=== PATIENT | male | born 1960 | race Caucasian/White ===

== ENCOUNTER 2022-04-07 19:43 | Emergency (ER) | payer BC, SELFPAY ==
[2022-04-07 19:49] VITALS: BP 153/79; PULSE 81; RESP 18; TEMP 36.9; O2SAT 97
--- NOTE | 2022-04-07 20:24 | ED.LOWEXIN ---
HPI - Extremity Injury (Lower) General Chief Complaint: Urogenital-Male Stated Complaint: Urinary Problem Time Seen by Provider: 04/07/22 19:55 Source: patient, family, RN notes reviewed and old records reviewed Mode of arrival: ambulatory Limitations: no limitations History of Present Illness HPI Narrative: 62 year old male accompanied by with episodes X2 of bright red blood noted today in urine. Patient states that in betwen the 2 episodes of bloody urine he has voided clear yellow looking urine. Patient denies any burning with urination, no pain with urination, no frequency, urgency, foul odor of urine, no abdominal or perineal pain and no new back pain. Patient has history of chronic back pain with past lumbar fusion. Patient denies any history of kidney stones or any previous UTI or prostate problems. Patient denies any fever, chills or sweats, denies any concern for STD exposure. MD complaint: other (hematuria) Onset (ago): day(s) (1) Treatments prior to arrival: other (none) Related Data Home Medications Medication Instructions Recorded Confirmed pravastatin 40 mg tablet 40 mg PO DAILY 02/09/22 04/07/22 Allergies Allergy/AdvReac Type Severity Reaction Status Date / Time Sulfa (Sulfonamide Allergy Intermediate Unknown Verified 04/07/22 20:00 Antibiotics) Review of Systems Review of Systems: CONSTITUTIONAL: Denies fever, chills, or sweats. EYES: Denies visual changes, redness, or discharge. ENT: Denies rhinorrhea, congestion, sore throat, or otalgia. CARDIOVASCULAR: Denies chest pain, palpitations, or edema. RESPIRATORY: Denies cough or dyspnea. GASTROINTESTINAL: Denies abdominal pain, nausea, vomiting, or diarrhea. GENITOURINARY: Denies dysuria positive for hematuria. SKIN: Denies rash or itching. MUSCULOSKELETAL: Chronic back pain, joint pain, or myalgia. NEUROLOGIC: Denies headache, numbness, or weakness. PSYCHIATRIC: Denies anxiety or depression. All systems reviewed & are unremarkable except as noted in HPI and below PMFSH Past Medical History Medical History (Updated 04/12/22 @ 12:29 by Connie Garcia NP) Arthritis Chronic back pain Elevated cholesterol Surgical History Surgical History (Updated 04/12/22 @ 12:32 by Connie Garcia NP) H/O lumbosacral spine surgery spinal fusion Family History Family History Father Cancer Hypertension Heart disease Mother Hypertension Social History Social History (Updated 04/12/22 @ 12:32 by Connie Garcia NP) Smoking packs per day: 1 Smoking cigarettes per day: 20.0 Smoking status: Current every day smoker Tobacco type: cigarettes Alcohol intake: never Substance use: never Substance use type: does not use Living arrangements: with family 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 There is no relevant family history pertinent to the presenting complaint Exam Narrative: GENERAL: Well-appearing, well-nourished, and in no acute distress. HEAD: Normocephalic, atraumatic. NECK: Supple.no lymphadenopathy CHEST: Clear to auscultation. No respiratory distress.SAO2 97% HEART: Regular rate and rhythm. No murmur heard. Normal peripheral pulses. ABDOMEN: Soft, nontender, nondistended, normal active bowel sounds. No CVA tenderness, patient has history of chronic back pain denies any new back pain. EXTREMITIES: Normal range of motion. No edema. SKIN: Warm, dry, no rash. NEURO: No focal deficits. Alert and oriented x3. Course Course Emergency Course: Patient is aware of diagnosis, understands and agrees to treatment plan.? Anticipatory guidance given.? Patient agrees to follow-up as directed and is aware of reasons to seek care at the emergency department. Portions of this record may have
== END 2022-04-07 20:35 | disposition home or self-care (01) ==
PROVIDERS: Emergency Provider Registered Nurse
DX: R31.9 Hematuria, unspecified (principal); E78.00 Pure hypercholesterolemia, unspecified; M19.90 Unspecified osteoarthritis, unspecified site
CPT/HCPCS: 81003; 87086; 99213; G0463

== ENCOUNTER 2022-06-04 14:10 | Outpatient (CLI) | payer BC, SELFPAY | END 2022-06-04 14:11 | disposition home or self-care (01) | LOC: ANHAUDASC 14:12 | PROVIDERS: Visit Provider Otolaryngology | DX: H90.3 Sensorineural hearing loss, bilateral (principal) | CPT/HCPCS: 92557; 92567 ==